=== PATIENT | female | born 1955 | race Caucasian/White ===

== ENCOUNTER 2018-11-08 16:03 | Inpatient (IN) | payer BC, MEDICARE ==
[~2018-11-08] VITALS: Ht 162.6 cm; Wt 94.3 kg
[2018-11-08 17:10] LABS: BASOPHILS % 0.9 % (0.0-2.0); EOSINOPHILS % 1.8 % (0.0-5.0); HEMATOCRIT. 34.4 % (36.0-48.0); LYMPHOCYTES % 22.4 % (20.0-50.0); MEAN CORPUSCULAR HEMOGLOBIN 30.4 pg (28.0-32.0); MEAN CORPUSCULAR VOLUME 87.4 fL (81.0-99.0); MEAN PLATELET VOLUME 8.6 fl (7.4-10.4); NEUTROPHILS % 68.9 % (40.0-76.0); PLATELET 272 x1000/uL (130-400); RED BLOOD CELL COUNT 3.94 mill/uL (4.2-5.4); RED CELL DISTRIBUTION WIDTH 13.1 % (11.6-14.6)
[2018-11-08 17:15] LABS: CHLORIDE 105 mEq/L (98-107)
[2018-11-08 17:16] LABS: PROTHROMBIN TIME 10.3 sec (9.6-11.0)
[2018-11-08 17:22] LABS: LDL CHOLESTEROL 73 mg/dL (5-100)
[2018-11-08] MEDS ORDERED: ASPIRIN 325MG TABLET PO ONE (18:45)
[2018-11-08] MEDS ORDERED: LABETALOL HCL 20MG/4ML CARPUJECT IV ONE (19:45)
[2018-11-08] MEDS ORDERED: ATORVASTATIN CALCIUM 10MG TABLET PO SCH (21:00)
[2018-11-08 23:56] VITALS: BP 149/61
[2018-11-09 00:22] VITALS: BP 149/61
[2018-11-09] MEDS ORDERED: METF-815 PO (01:36)
[2018-11-09] MEDS ORDERED: LIP40 PO (01:39)
[2018-11-09] MEDS ORDERED: LISI40TA4 PO (01:39)
[2018-11-09] MEDS ORDERED: SITA50TA3 PO (01:39)
[2018-11-09] MEDS ORDERED: ACETAMINOPHEN 325MG TABLET PO PRN (02:00)
[2018-11-09] MEDS ORDERED: HYDROCODONE/ACETAMINOPHEN 5/325MG TABLET PO PRN (02:00)
[2018-11-09] MEDS ORDERED: GUAIFENESIN 200MG/10ML SUGAR FREE UDC PO PRN (02:00)
[2018-11-09] MEDS ORDERED: CLONIDINE 0.1MG TABLET PO PRN (02:00)
[2018-11-09] MEDS ORDERED: ONDANSETRON HCL 4MG/2ML INJ IV PRN (02:00)
[2018-11-09] MEDS ORDERED: DOCUSATE SODIUM 100MG CAPSULE PO PRN (02:00)
[2018-11-09] MEDS ORDERED: AMLODIPINE 10MG TABLET PO SCH (03:00)
[2018-11-09 04:00] VITALS: BP 150/58
[2018-11-09] MEDS ORDERED: DEXTROSE 50% WATER 50ML SYRINGE IV PRN (04:30)
[2018-11-09] MEDS ORDERED: BLOOD SUGAR DIAGNOSTIC STRIP TEST SCH (07:20)
[2018-11-09] MEDS ORDERED: INSULIN LISPRO 100 UNITS/ML SUBCUT SCH (07:50)
[2018-11-09 08:00] VITALS: BP 161/59
[2018-11-09] MEDS ORDERED: PNEUMOCOCCAL 23-VAL P-SAC VAC 0.5 ML IM ONE (08:00)
[2018-11-09] MEDS ORDERED: ASPIRIN 81MG EC TABLET PO SCH (09:00)
[2018-11-09] MEDS ORDERED: INFLUENZA VIRUS VACCINE(AFLURIA) 0.5ML SYR IM ONE (10:00)
[2018-11-09 11:49] VITALS: BP 121/70
[2018-11-09 12:02] VITALS: BP 121/70
== END 2018-11-09 12:58 | disposition home or self-care (01) | DRG 69 ==
LOC: ER 16:03 → 6WST 19:04 → ENRESERV 21:30
PROVIDERS: ADMIT Hospitalist; ATTEND Hospitalist
DX: G45.9 Transient cerebral ischemic attack, unspecified (principal); N17.9 Acute kidney failure, unspecified; E11.65 Type 2 diabetes mellitus with hyperglycemia; Z88.5 Allergy status to narcotic agent
CPT/HCPCS: 36415; 70551; 71045; 82962; 83721; 84484; 90686; 90732; 93005; 93880; 96374; 99285; J1815; J3490